=== PATIENT | male | born 1975 | race Caucasian/White ===

== ENCOUNTER 2019-06-20 20:19 | Emergency (ER) | payer MEDICAID, SELFPAY ==
[2019-06-20 20:22] VITALS: BP 160/88; PULSE 90; RESP 18; TEMP 36.9; O2SAT 99; BMI 25.4
--- NOTE | 2019-06-20 20:26 | EKG12_ITS ---
Test Reason : CP Blood Pressure : / mmHG Vent. Rate : 093 BPM Atrial Rate : 093 BPM P-R Int : 144 ms QRS Dur : 080 ms QT Int : 334 ms P-R-T Axes : 067 070 025 degrees QTc Int : 415 ms Sinus rhythm with marked sinus arrhythmia Nonspecific T wave abnormality Abnormal ECG Confirmed by AMIE TRAYLOR, CRISTIN ([id number]), graphic editor DOMINIC POWELL ([id number]) on 06/26/2019 11:48:53 AM Referred By: KIM Confirmed By:LEONA HOLLOWAY MD
--- NOTE | 2019-06-20 20:57 | ED.VIS.GEN ---
History of Present Illness Chief Complaint: Palpitations Informant: Patient Onset: Today Context: Sudden Onset Timing: Intermittent Current Severity: Mild Maximum Severity: Mild Narrative: The patient presents to the emergency department palpitations. The patient works at [employer]. He states that he found what he believed to be a bag of crystal meth. He states he picked up with gloves and disposed of them properly. He states shortly thereafter, he began to feel like his heart was racing. He denies chest pain or dyspnea. He is otherwise been in his normal state of health. He states he feels improved, but still feels like it is occasionally skipping beats. He is on no daily medications. He denies any other exposures. Prior similar symptoms: No Recent Illness/Hospitalization: No Past Medical History - Allergies and Home Meds Allergies/Adverse Reactions: Allergies No Known Allergies Allergy (Verified 06/20/19 20:21) Primary Care Physician: Care Physician,No Primary [Primary Care Provider] - Prior records reviewed: Yes Past Medical History: None Surgical History: no surgical history Smoking Status: Never smoker Review of Systems General: Denies: Chills, Fever, Sweats Eyes: Denies: Visual changes - bilaterally, Diplopia ENT: Denies: Rhinorrhea, Sore throat Cardiovascular: Reports: Palpitations, Heart racing. Denies: Chest pain Respiratory: Denies: Dyspnea, Cough, Dyspnea on exertion Gastrointestinal: Denies: Abdominal pain, Nausea, Vomiting, Diarrhea, Melena, Hematochezia Genitourinary: Denies: Dysuria, Hematuria, Frequency Musculoskeletal: Denies: Back pain, Extremity Pain Skin: Denies: Rash, Wounds Neurological: Denies: Headache, Weakness, Numbness Physical Exam Vital Signs/Narrative: Vital Signs Temp Pulse Resp BP Pulse Ox 06/20/19 20:22 98.5 F 90 18 160/88 H 99 Inital Vital Signs reviewed: Yes General: Well nourished, Well developed, No Acute Distress Head: Normocephalic, Atraumatic Eyes: Perrl, EOMI ENT: Moist mucous membranes, No rhinorrhea Neck: Supple, Nontender Cardiovascular: Regular rate, Regular rhythm, No murmurs Respiratory: No distress, CTA bilaterally, Chest nontender Abdomen: Soft, Nontender, Nondistended, Normal bowel sounds Back: Nontender, Normal Inspection Extremities: Nontender, No edema Skin: Normal color, No rash Neurological: Alert, Oriented x3, Cranial nerves II-XII grossly intact, Normal Strength, Normal Sensation Psychological: Normal affect, Normal Mood Diagnostic/Tx/Re-eval - Rhythm Strip Rhythm Strip: Sinus Rhythm Rate: 80 Ectopy: None - EKG Initial EKG Interpretation: Sinus Rhythm, No Acute Injury Pattern Prior: Unchanged - Medical Decision Making The patient presents with palpitations after coming in contact with methamphetamine. He states it was in a bag. He states it did not touch his skin. He is currently asymptomatic. He is not tachycardic. EKG was obtained. It demonstrated sinus rhythm without acute ischemia. Patient was observed on the monitor for an hour. He had no tachycardia or dysrhythmia. At this point, I am unsure the etiology of his palpitations. I do not suspect a dangerous process. He is otherwise been in his normal state of health. He will be discharged home. Impression 1. Palpitations ED Disposition - Plan for ED Patient: Instructions: Palpitations Referrals: Care Physician,No Primary [Primary Care Provider] -
[2019-06-20 21:06] VITALS: PULSE 89
== END 2019-06-20 21:26 | disposition home or self-care (01) ==
LOC: ED 20:40
PROVIDERS: Emergency Provider Emergency Medicine
DX: R00.2 Palpitations (principal)
CPT/HCPCS: 93005; 99285